=== PATIENT | female | born 1995 | race Caucasian/White ===

== ENCOUNTER 2022-11-25 19:00 | Emergency (ER) | payer OTHER, SELFPAY ==
--- NOTE | ~2022-11-25 | XR_ITS ---
EXAMINATION: XR LUMBOSACRAL SPINE CLINICAL INFORMATION: Low back pain, injury COMPARISON: None available. TECHNIQUE: Three views of the lumbosacral spine. FINDINGS: Mild scoliosis convex left apex at L2. No listhesis or compression injury is seen here. The vertebral body heights and disc heights are fairly well-preserved. Cannot exclude some mild loss of disc height at multiple levels Mild sclerosis in the region of the SI joints The SI joints are grossly patent.. No fracture line is seen. XR/XR lumbar spine 2-3V IMPRESSION: No acute finding.
[2022-11-25 19:18] VITALS: BP 129/87; PULSE 78; RESP 18; TEMP 36.7; O2SAT 98; BMI 31.9
--- NOTE | 2022-11-25 19:20 | ED.GENADULT ---
HPI - General Adult General Chief complaint: Back Pain/Injury Stated complaint: Pain in back, muscle spams Time Seen by Provider: 11/25/22 22:51 Source: patient Mode of arrival: ambulatory Limitations: no limitations Related Data Home Medications Medication Instructions Recorded Confirmed dextromethorphan HBr 5 mg/5 mL 10 mg PO Q6H PRN 10/06/22 10/06/22 oral syrup (Vicks DayQuil Cough) guaifenesin 600 mg tablet, 600 mg PO BID 10/06/22 10/06/22 extended release 12 hr (Mucinex) Previous Rx's Medication Instructions Recorded prednisone 20 mg tablet 40 mg PO DAILY 5 days #10 tabs 10/06/22 cyclobenzaprine 10 mg tablet 10 mg PO BEDTIME PRN muscle spasm 11/25/22 #7 tabs ketorolac 10 mg tablet 10 mg PO TID PRN pain 5 days #15 11/25/22 tabs lidocaine 5 % topical patch 1 patch topical DAILY PRN pain #15 11/25/22 ea Allergies Allergy/AdvReac Type Severity Reaction Status Date / Time No Known Allergies Allergy Verified 11/25/22 19:25 [facility] Social History Social History Patient Tobacco Use Status: Never used Tobacco Advance Directives: No Advance Directives Information Provided: No Physical Exam ED Vital Signs: Vital Signs - 24 hr 11/25/22 19:18 11/25/22 22:53 Temperature 98.1 F 98.0 F Pulse Rate 78 80 Respiratory Rate 18 20 Blood Pressure 129/87 109/52 L Pulse Oximetry 98 97 Oxygen Delivery Method Room Air Room Air BMI result Body Mass Index 31.9 Course Course Course Narrative: [facility] triage 25 years old female with past medical history of bronchitis is here today for complaining of lower back pain. Patient states that she was treated for lower back pain, disc herniation past year. Diagnosed at at [facility] with MRI in January of last year. Patient reports that she was lifting heavy boxes in her room few days ago and the night last night she tried to move in bed and she had significant back pain. Patient was able to get out of bed, went to work today, however she continues to have low back pain. Patient states that she has a also history of sciatica. She received cortisone shot about 4 months ago or so. Has seen specialists in the past. Patient denies any urinary or fecal frequency or urgency Medications Administered Discontinued Medications Generic Name Dose Route Start Last Admin Trade Name Freq PRN Reason Stop Dose Admin Cyclobenzaprine HCl 10 mg 11/25/22 22:51 11/25/22 23:03 Cyclobenzaprine Hcl 10 Mg Tablet PO 11/25/22 22:52 10 mg ONCE ONE Administration Ketorolac Tromethamine 30 mg 11/25/22 22:51 11/25/22 23:03 Ketorolac Tromethamine 30 Mg/Ml Vial IM 11/25/22 22:52 30 mg ONCE ONE Administration Lidocaine 1 patch 11/25/22 22:51 11/25/22 23:02 Lidocaine 4 % Patch Adh..Patch TRANSDERMA 11/25/22 22:52 1 patch ONCE ONE Administration Protocol Discharge Plan Discharge Clinical Impression: Lower back pain Patient Disposition: Home, Self-Care Instructions: Back Pain (ED) Additional Instructions: Take your medications as prescribed. If you were prescribed antibiotics today, it is important that you take your medication to their entirety, do not skip any doses, do not finish them early. Follow-up with your primary care provider this week. Return to the emergency department with new or worsening symptoms. Such as fevers, chills, chest pain, shortness of breath, nausea, vomiting, dizziness, headache, vision changes, lethargy, numbness to her legs, loss of control of bowel or bladder. In case of emergency call 911 Toradol has been sent to your pharmacy, you tolerated this well in the department. Please take this as prescribed do not take this with ibuprofen, or other NSAIDs, do not mix this with alcohol. Side effects of this medication including increased risk for bleeding and possible kidney injury. Please follow-up with specialist. Prescriptions: New cyclobenzaprine 10 mg tablet 10 mg PO BEDTIME PRN (Reason: muscle spasm) Qty: 7 0RF ketorolac 10 mg tablet 10 mg PO TID PRN (Reason: pain) 5 Days Qty: 15 0RF lidocaine 5 % adhesive patch,medicated 1 patch topical DAILY PRN (Reason: pain) Qty: 15 0RF Rx Instructions: leave on most painful area for up to 12 hrs No Action guaifenesin [Mucinex] 600 mg tablet extended release 12hr 600 mg PO BID Vicks DayQuil Cough 5 mg/5 mL syrup 10 mg PO Q6H PRN prednisone 20 mg tablet 40 mg PO DAILY 5 Days Qty: 10 0RF Referrals: [facility] [Provider Group] - 2 days Tee Marcum MD [Primary Care Provider] - 2 days Stand Alone Forms: Work/School Release
[2022-11-25 22:53] VITALS: BP 109/52; PULSE 80; RESP 20; TEMP 36.7; O2SAT 97
--- NOTE | 2022-11-25 22:54 | ED.BACK ---
HPI - Back Pain/Injury General Chief Complaint: Back Pain/Injury Stated Complaint: Pain in back, muscle spams Time Seen by Provider: 11/25/22 22:51 Source: patient Mode of arrival: ambulatory Limitations: no limitations History of Present Illness HPI Narrative: 26-year-old female history of herniated disc (L5-S1) presents with 2 days of lower back pain status post heavy lifting, she reports the boxes approximately 25 lb, when she picked it up she kind of twisted and since then has been having some pain, worse with movement better at rest, at times radiates down both extremities when pain is sevre. Patient reports that she had a cortisone injection in her back approximately 5 months ago, followed by specialist [facility]. Patient reports pain was worse this morning however still present at this time. Took naproxen with some relief. Denies urinary/bowel incontinence/retention, saddle paresthesias, numbness, tingling, headache, vision changes, fevers, chills, had history of IV drug abuse. No reported trauma Related Data Home Medications Medication Instructions Recorded Confirmed dextromethorphan HBr 5 mg/5 mL 10 mg PO Q6H PRN 10/06/22 10/06/22 oral syrup (Vicks DayQuil Cough) guaifenesin 600 mg tablet, 600 mg PO BID 10/06/22 10/06/22 extended release 12 hr (Mucinex) Previous Rx's Medication Instructions Recorded prednisone 20 mg tablet 40 mg PO DAILY 5 days #10 tabs 10/06/22 ketorolac 10 mg tablet 10 mg PO TID PRN pain 5 days #15 11/25/22 tabs lidocaine 5 % topical patch 1 patch topical DAILY PRN pain #15 11/25/22 ea morphine 15 mg immediate release 15 mg PO Q6H PRN pain 5 days #10 11/25/22 tablet tabs Allergies Allergy/AdvReac Type Severity Reaction Status Date / Time No Known Allergies Allergy Verified 11/25/22 19:25 Review of Systems Review of Systems: Constitutional : No Weight loss, No Fever, No Chills, ENT/Mouth : No Hearing loss, No Ear Pain, No Nasal Congestion, No Sinus Pain, No Hoarseness, No sore throat, No Rhinorrhea, No Swallowing Difficulty Cardiovascular : No Chest Pain, No SOB Respiratory : No Cough, No Dyspnea Gastrointestinal : No Nausea, No Vomiting, No Diarrhea, No abdominal Pain, No Hematochezia, No Melena Genitourinary : No Dysuria, No Urinary Frequency, No Hematuria, No Urinary Incontinence, Musculoskeletal : positive back pain Skin : No Skin Lesions, No rash Neuro : No Weakness, No Numbness, No Paresthesias, no loss of bowel or bladder incontinence, no saddle anesthesia Yes all other systems are reviewed and are negative [facility] Past Medical History Attestation statement: The following information was validated with the patient. Source: old records reviewed and nursing notes reviewed Social History Social History Patient Tobacco Use Status: Never used Tobacco Advance Directives: No Advance Directives Information Provided: No Physical Exam Vital Signs: Vital Signs: Last Vital Signs Temp 98.0 F 11/25/22 22:53 Pulse 80 11/25/22 22:53 Resp 20 11/25/22 22:53 BP 109/52 L 11/25/22 22:53 Pulse Ox 97 11/25/22 22:53 O2 Del Method Room Air 11/25/22 22:53 BMI result Body Mass Index 31.9 Vital signs stable Appearance: Alert.? Oriented X3.? No acute distress.? Head: Normocephalic, atraumatic, no step-offs or deformities Eyes: Pupils equal, round and reactive to light.? CVS: Normal heart rate and rhythm.? Pulses normal.? Respiratory: No respiratory distress.? Breath sounds normal.? Abdomen: Soft and nontender.? Skin: Skin warm and dry.? Normal skin color.? Normal skin turgor.? Extremities: No lower extremity edema.? No calf ttp. 5/5 strength to bilateral upper and lower extremities Back: No midline tenderness, no C-spine tenderness, full range of motion, no CVA tenderness bilaterally + pain to palpation to bilateral lumbar paraspinous region. + straight leg raise b/l. Neuro: Oriented X 3.? No motor deficit.? No sensory deficit. CN 2-12 intact . Ambulating steady gait normal coordination. No saddle paresthesias. Course Reevaluation(s) Reevaluation #1: X-ray with no acute findings. Patient will be discharged with Toradol, cyclobenzaprine and Lidoderm. Educated patient on diagnosis and treatment plan, answered all question, patient verbalizes understanding. At this time patient will be discharged home, advised to return with new or worsening symptoms. Educated on worrisome signs and symptoms and when to return. At this time I feel comfortable discharge home. Time: 22:56 Reevaluation #2: Patient does report that pain is severe therefore did give oral Marcaine will send her home on same. Educated on safe narcotic use. Time: 23:22 Medications Administered Discontinued Medications Generic Name Dose Route Start Last Admin Trade Name Noemí PRN Reason Stop Dose Admin Cyclobenzaprine HCl 10 mg 11/25/22 22:51 11/25/22 23:03 Cyclobenzaprine Hcl 10 Mg Tablet PO 11/25/22 22:52 10 mg ONCE ONE Administration Ketorolac Tromethamine 30 mg 11/25/22 22:51 11/25/22 23:03 Ketorolac Tromethamine 30 Mg/Ml Vial IM 11/25/22 22:52 30 mg ONCE ONE Administration Lidocaine 1 patch 11/25/22 22:51 11/25/22 23:02 Lidocaine 4 % Patch Adh..Patch TRANSDERMA 11/25/22 22:52 1 patch ONCE ONE Administration Protocol Medical Decision Making Medical Decision Making [facility] Narrative: 2256 26-year-old female presents with lower back pain, past few days history of herniated discs, this started after heavy lifting. Denies red flag symptoms for back pain. Physical exam significant for No midline tenderness, no C-spine tenderness, full range of motion, no CVA tenderness bilaterally + pain to palpation to bilateral lumbar paraspinous region. No saddle paresthesias. Ambulating with steady gait. Positive straight leg raise bilaterally. Likely herniated disc versus lumbago versus lumbar radiculopathy. Unlikely cauda equina, epidural abscess, cord compression. Plan at this time Toradol, cyclobenzaprine, Lidoderm patch. X-ray was ordered from triage Differential Diagnosis Differential Diagnoses: The differential diagnosis associated with the presentation includes Likely herniated disc versus lumbago versus lumbar radiculopathy. Unlikely cauda equina, epidural abscess, cord compression. Admission/Observation Consideration of admission/observation: Escalation of care including admission/observation considered Unlike Independent Interpretation I performed an independent interpretation of an: Plain X-Ray (XR/XR lumbar spine 2-3V IMPRESSION: No acute finding.) Radiology Impression Discussion of test interpretation with radiology: I have reviewed the radiologist's reading. Core Measures AMI core measures followed: Yes Measure exclusions: not indicated Critical Care Time Critical Care Time Critical Care Time: No Discharge Plan Discharge Clinical Impression: Lower back pain Patient Disposition: Home, Self-Care Instructions: Back Pain (ED) Additional Instructions: Take your medications as prescribed. If you were prescribed antibiotics today, it is important that you take your medication to their entirety, do not skip any doses, do not finish them early. Follow-up with your primary care provider this week. Return to the emergency department with new or worsening symptoms. Such as fevers, chills, chest pain, shortness of breath, nausea, vomiting, dizziness, headache, vision changes, lethargy, numbness to her legs, loss of control of bowel or bladder. In case of emergency call 911 Toradol has been sent to your pharmacy, you tolerated this well in the department. Please take this as prescribed do not take this with ibuprofen, or other NSAIDs, do not mix this with alcohol. Side effects of this medication including increased risk for bleeding and possible kidney injury. A narcotic has been sent to your pharmacy please take this as prescribed. Do not take more than the prescribed dose. Narcotic medications can cause addiction. Please do not mix them with alcohol. Do not take them while driving or operating machinery. Do not take them with any other narcotics. Do not share them with friends or family. They can cause constipation. Take them only for severe pain. Please follow-up with specialist. Prescriptions: New ketorolac 10 mg tablet 10 mg PO TID PRN (Reason: pain) 5 Days Qty: 15 0RF lidocaine 5 % adhesive patch,medicated 1 patch topical DAILY PRN (Reason: pain) Qty: 15 0RF Rx Instructions: leave on most painful area for up to 12 hrs morphine 15 mg tablet 15 mg PO Q6H PRN (Reason: pain) 5 Days Qty: 10 0RF Rx Instructions: Partial Fill upon patient request. No Action guaifenesin [Mucinex] 600 mg tablet extended release 12hr 600 mg PO BID Vicks DayQuil Cough 5 mg/5 mL syrup 10 mg PO Q6H PRN prednisone 20 mg tablet 40 mg PO DAILY 5 Days Qty: 10 0RF Referrals: [facility] [Provider Group] - 2 days Tee Marcum MD [Primary Care Provider] - 2 days Stand Alone Forms: Work/School Release
[2022-11-25] MEDS: Lidocaine 4 % Patch ADH..PATCH 1 PATCH TRANSDERMA (23:02)
[2022-11-25] MEDS: Cyclobenzaprine HCl 10 MG TABLET PO (23:03)
[2022-11-25] MEDS: Ketorolac Tromethamine 30 MG/ML VIAL IM (23:03)
[2022-11-25] MEDS: Morphine Sulfate Immed Release 15 MG TABLET PO (23:36)
== END 2022-11-25 23:38 | disposition home or self-care (01) ==
PROVIDERS: Emergency Provider Internal Medicine; PCP Internal Medicine
DX: M54.50 Low back pain, unspecified (principal)
CPT/HCPCS: 72100; 96372; 99284; J1885

== ENCOUNTER 2023-08-11 09:40 | Outpatient (AMB) | payer OTHER, SELFPAY ==
--- NOTE | 2023-08-11 09:42 | MHC.OFFWIV ---
Intake Vital Signs 08/11/23 09:57 Height 5 ft 3 in Weight 211 lb 2 oz BMI 37.4 BP 116/70 Blood Pressure Location Lt brachial Position Sitting Pulse 92 Pulse Source Pulse Oximeter Temp 98.8 F Temp Source Oral Pulse Oximetry (%) 98 Oxygen Delivery Method Room Air Intake Visit Reasons: cough,fever,bodyache [phone] Intake Note: Patient is here with cough for 2 days, with coughing fits, co workers have the flu, she's had fever, chills, nausea, chest congestion, muscle aches, neg home Covid test yesterday. Patient Tobacco Use Status: Never used Tobacco Allergies No Known Allergies Allergy (Verified 08/11/23 10:44) Medication List - Last Reconciled 08/11/23 by Shu Daigle, MARIA E- dextromethorphan HBr (Vicks DayQuil Cough) 10 mg PO Q6H PRN guaifenesin ER (Mucinex) 600 mg PO BID lidocaine 5% 1 patch topical DAILY PRN prednisone 40 mg (2 x 20 mg) PO DAILY 5 days Do you need a note to return to daycare/school/sports/work: Yes HPI HPI Comments History of Present Illness Details here w flu like sx started 2 days ago worse since onset cough, body aches, sweats, chills, sore throat mild, headache exposed to sick contacts with the flu and COVID home test negative for COVID UTD on flu and COVID vaccines Using theraflu w/ no relief + asthma not on controllers, only effects her when ill PFSH Social History Patient Tobacco Use Status: Never used Tobacco Review of Systems Const All systems reviewed & are unremarkable except as noted in HPI and below Physical Exam Vital Signs: Last Vital Signs Temp 98.8 F 08/11/23 09:57 Pulse 92 08/11/23 09:57 BP 116/70 08/11/23 09:57 Pulse Ox 98 08/11/23 09:57 Oxygen Delivery Method Room Air 08/11/23 09:57 BMI result Body Mass Index 37.4 Const Other: mildly ill appearing NAD TM intact clear bilat Nares patent turbinates WNL Pharynx WNL RRR LS dim throughout, faint exp BUL, hacking cough noted during exam w/o distress Assessment & Plan Assessment & Plan (1) Flu-like symptoms: Code(s): R68.89 - Other general symptoms and signs (2) Asthmatic bronchitis with acute exacerbation: Code(s): J45.901 - Unspecified asthma with (acute) exacerbation Qualifiers: Asthma persistence: intermittent Asthma severity: mild Qualified Code(s): J45.21 - Mild intermittent asthma with (acute) exacerbation Plan: . Plan Viral swab obtained today. She will be called only if the results are positive. This looks like a flu picture. The viral illness is impacting her asthma causing an exacerbation. She does not tolerate p.o. prednisone while therefore I will start her on an inhaled corticosteroid. She reports that she is used Flovent in the past with good success. That is why I am called in. Along with a rescue inhaler. She should take as needed. Made aware not to mix the Tessalon with other [id number] cough suppressants. She can use Tylenol or NSAIDs to help with body aches and fever. Work note provided. [id number] called pt with + flu A results insurance doesnt cover flovent, needs PA. I have sent Arnuity in place. [facility] [facility] [place] [facility] does not have this; advised her to ask them to call other [employer] and get it. If needed, call me and i can send elsewhere. She asked me to send in Tamiflu. I have done this. Total time spent caring for the patient today was 40 minutes. This includes time spent before the visit reviewing the chart, time spent during the visit, and time spent after the visit on documentation Orders: Orders SARS-CoV2/FLU/RSV Today R68.89 - Other general symptoms and signs Medications: New benzonatate 100 mg PO TID PRN 30 caps 1RF cough 10 days albuterol sulfate 90 mcg/actuation 2 puffs inhalation Q4-6H PRN 8.5 grams 0RF shortness of breath or wheezing 30 days fluticasone propionate 100 mcg/actuation (Flovent Diskus) 1 inh inhalation BID 30 days 60 ea 0RF Coding Level of Care Code Est Pt Level 5 (06589) Diagnoses Flu-like symptoms R68.89 Mild intermittent asthmatic bronchitis with acute exacerbation J45.21 Asthma persistence: intermittent Asthma severity: mild
[2023-08-11 09:57] VITALS: BP 116/70; PULSE 92; TEMP 37.1; O2SAT 98; BMI 37.4
== END 2023-08-11 10:56 | disposition home or self-care (01) ==
PROVIDERS: PCP Internal Medicine; Visit Provider Nurse Practitioner Family
DX: R68.89 Other general symptoms and signs (principal); J45.21 Mild intermittent asthma with (acute) exacerbation
CPT/HCPCS: 99215

== ENCOUNTER 2023-08-11 14:50 | Outpatient (REF) | payer OTHER, SELFPAY ==
[2023-08-11 15:57] LABS: Influenza A PCR POSITIVE (Negative); Influenza B PCR NEGATIVE (Negative); Resp Syncy Virus RNA Qual PCR NEGATIVE (Negative); SARS COV2 PCR INHOUSE NEGATIVE (Negative)
== END 2023-08-11 14:51 | disposition home or self-care (01) ==
LOC: HO.LNP 14:50
PROVIDERS: Visit Provider Nurse Practitioner Family
DX: Z11.52 Encounter for screening for COVID-19 (principal); Z20.822 Contact with and (suspected) exposure to COVID-19; R68.89 Other general symptoms and signs
CPT/HCPCS: 0241U

== ENCOUNTER 2023-10-02 21:52 | Emergency (ER) | payer OTHER, SELFPAY ==
[2023-10-02 22:18] VITALS: BP 129/72; PULSE 90; RESP 18; TEMP 36.8; O2SAT 99; BMI 35.4
== END 2023-10-03 00:15 | disposition left against medical advice (07) ==
PROVIDERS: Emergency Provider Emergency Medicine
DX: R06.00 Dyspnea, unspecified (principal)
CPT/HCPCS: 99281